=== PATIENT | male | born 1945 | race Caucasian/White ===

== ENCOUNTER → 2017-02-15 | Outpatient (CLI) | payer OTHER ==
--- NOTE | 2017-02-15 08:55 | DIAGNOSTIC IMAGING REPORT ---
ABDOMEN COMPLETE (US) CLINICAL HISTORY: R14.0 Abdominal [id number] COMPARISON STUDY: No previous studies for comparison. FINDINGS: The head and body of pancreas appear normal. The tail is obscured by overlying bowel gas shadowing. There is no evidence of abdominal aortic dilatation. The right kidney measures 12.3 cm in length. The left kidney measures 12.1 cm in length. No renal masses are visualized. There is no hydronephrosis. The spleen measures 10 cm in length. No splenic masses are visualized. There is a 5 mm echogenic nonmobile focus within the gallbladder, consistent with a polyp. There is no gallbladder wall thickening. There is no pericholecystic fluid. The liver is of slightly increased echogenicity. This a nonspecific finding most often seen in hepatic steatosis. There is a 6.1 x 1.7 x 5.1 cm hypoechoic lesion in the region the wilver hepatis. While nonspecific, this may represent focal fatty sparing. If further evaluation is desired, a dedicated MRI the liver would be considered the test of choice. There is no ductal dilatation. The common buttock measures 6 mm. IMPRESSION: 1. Suspected hepatic steatosis 2. Indeterminant 51 x 17 x 61 mm lesion with thin the right lobe of the liver in the wilver hepatis region. This may represent focal fatty sparing. 3. No ductal dilatation. 4. 5 mm gallbladder polyp Electronically signed by: Armani Peters M.D. 02/15/2017 8:54 AM Dictated Date/Time: 02/15/2017 8:50 AM
== END | disposition home or self-care (01) ==
LOC: C.ULTR 07:37
PROVIDERS: ATTEND Physician Assistant Medical
DX: R14.0 Abdominal distension (gaseous) (principal); K76.9 Liver disease, unspecified; K82.4 Cholesterolosis of gallbladder

== ENCOUNTER → 2017-02-20 | Outpatient (CLI) | payer OTHER ==
[2017-02-20 12:45] LABS: BLOOD UREA NITROGEN 13 mg/dl (7-18); CREATININE 0.71 mg/dl (0.60-1.40)
== END | disposition home or self-care (01) ==
LOC: C.LABBFT 08:22
PROVIDERS: ATTEND Physician Assistant Medical
DX: R93.8 Abnormal findings on diagnostic imaging of other specified body structures (principal)

== ENCOUNTER → 2017-02-21 | Outpatient (CLI) | payer OTHER ==
--- NOTE | 2017-02-21 17:53 | DIAGNOSTIC IMAGING REPORT ---
MRI OF THE ABDOMEN COMBO CLINICAL HISTORY: Follow-up suspected liver lesions and by ultrasound. COMPARISON STUDY: Abdominal ultrasound dated 02/15/2017. TECHNIQUE: MRI of the abdomen is performed transverse T1 and T2-weighted sequences in the axial and coronal planes. Contrast enhanced sequences were acquired following the IV administration of 10 cc of Eovist. Subtraction imaging was utilized. FINDINGS: Lower chest: No pleural effusion is identified. The heart is normal in size. A 5 mm pulmonary nodule seen at the left lung base. Liver: The liver is top normal in size measuring over 17 cm in length. The liver demonstrates diffuse drop in signal on the opposed phase images consistent with hepatic steatosis. There is an approximately 6 x 2.5 cm lobulated region of geographic sparing within the posterior left lobe adjacent to the wilver hepatis. This corresponds and around the cement ultrasound. Mild fatty sparing is also seen surrounding the gallbladder fossa. No enhancing hepatic lesion is identified. No intrahepatic biliary ductal dilatation is seen. The hepatic veins and portal veins are patent. Gallbladder: Unremarkable. Spleen: Normal in size and signal intensity. Pancreas: Unremarkable. Adrenal glands: Unremarkable. Kidneys: The kidneys are normal in size and without hydronephrosis. The kidneys enhance and excrete symmetrically. Abdominal aorta: The abdominal aorta is normal in course and caliber noting atherosclerotic irregularity. Bowel: Visualized portions of the small bowel and colon show no evidence of obstruction. A normal appendix is identified. Peritoneum: There is no abdominal ascites. There is a small fat-containing umbilical hernia. Lymphadenopathy: None. Skeletal structures: Visualized skeletal structures times are normal marrow signal intensity. IMPRESSION: 1. Findings are consistent with hepatic steatosis. 2. There is a lobulated/geographic region fatty sparing seen in the left hepatic lobe. This corresponds to the abnormality seen by ultrasound. Fatty sparing is also seen around the gallbladder fossa. 3. No hepatic lesion is identified. 4. There is a 5 mm pulmonary nodule seen at the left lung base. This is not well assessed by MRI and correlation with a dedicated chest CT is recommended for further assessment. Electronically signed by: Tima Boggs M.D. 02/21/2017 5:51 PM Dictated Date/Time: 02/21/2017 5:38 PM
== END | disposition home or self-care (01) ==
LOC: C.MRI 15:36
PROVIDERS: ATTEND Physician Assistant Medical
DX: K76.9 Liver disease, unspecified (principal); K76.0 Fatty (change of) liver, not elsewhere classified; R91.1 Solitary pulmonary nodule

== ENCOUNTER → 2017-03-07 | Outpatient (CLI) | payer OTHER ==
[2017-03-07 17:08] LABS: CHOLESTEROL/HDL RATIO 4.1
== END | disposition home or self-care (01) ==
LOC: C.LABBFT 13:40
PROVIDERS: ATTEND Internal Medicine
DX: E78.5 Hyperlipidemia, unspecified (principal); K76.9 Liver disease, unspecified; R93.8 Abnormal findings on diagnostic imaging of other specified body structures

== ENCOUNTER → 2017-03-09 | Outpatient (CLI) | payer OTHER ==
[~2017-03-09] MED LIST: OPTIRAY 320 IV PRN
--- NOTE | 2017-03-09 14:04 | DIAGNOSTIC IMAGING REPORT ---
CHEST CT WITH CONTRAST CT DOSE: 265.40 mGy.cm HISTORY: Pulmonary nodule follow-up. No acute chest complaints. Pulmonary nodules incidentally noted on recent liver MRI. R91.1 Pulmonary [id number] 02/20/17 CREATININE 0.71 TECHNIQUE: Multiaxial CT images of the chest were performed following the intravenous administration of contrast. A dose lowering technique was utilized adhering to the principles of ALARA. COMPARISON: Liver MRI 02/21/2017. FINDINGS: No dominant thyroid nodule. Mildly prominent 8 mm subcarinal lymph node is nonspecific and may be reactive. Heart is normal in size with coronary arterial calcifications. There is moderate atherosclerosis of the thoracic aorta and proximal great vessels. The pulmonary arterial tree is not well opacified, however appears unremarkable. There is no pneumothorax or pleural effusion. Multiple focal patchy groundglass opacities with subpleural reticular and tree-in-bud opacities are present within the bilateral lower lobes and also within the inferior portions of the lingula and right middle lobe. 6 mm noncalcified pulmonary nodule of the lateral basal segment left lower lobe correlates with the finding seen on comparison MRI. 5 mm noncalcified pulmonary nodule seen within the right lower lobe on image 213 of the axial series. 5 mm noncalcified pulmonary nodule seen within the left lower lobe on image 240. Central airways are patent with minimal layering mucosal secretions. Fatty infiltration of the liver is noted with areas of fatty sparing near the wilver hepatis. Soft tissues are within normal limits. Bones are intact. Multilevel endplate spurring and facet arthropathy is noted. IMPRESSION: 1. Noncalcified pulmonary nodules of the bilateral lung bases are seen, largest on the left measuring 6 mm within the lateral basal segment left lower lobe. Follow-up according to the guidelines below recommended. 2. Bibasilar groundglass densities with multifocal subpleural reticular and tree-in-bud opacities suggest infectious or inflammatory bronchiolitis without lobar airspace consolidation. 3. Fatty infiltration of the liver with fatty sparing near the wilver hepatis. Please refer to below summary of Fleischner criteria recommendations for follow-up of incidental CT nodules (Manuel Carreno, Guidelines for management of small pulmonary nodules detected on CT scans: A statement from the Fleischner Society, Radiology 237: [phone].) SOLID NODULES Solitary nodule size: <6 mm * Low risk patients: no follow-up needed * high risk patients: optional CT at 12 months Solitary nodule size: 6-8 mm * Low risk patients: follow-up at 6-12 months, then consider further follow-up at 18-24 months * high risk patients: initial follow-up CT at 6-12 months and then at 18-24 months if no change Solitary nodule size: >8 mm * either low or high risk patients - consider follow-up CT at 3 months, and/or CT-PET, and/or biopsy Multiple nodules size: <6 mm * Low risk patients: no routine follow-up * high risk patients: optional CT at 12 months Multiple nodules size: 6-8 mm * Low risk patients: follow-up at 3-6 months, then consider further follow-up at 18-24 months * high risk patients: follow-up at 3-6 months, then at 18-24 months if no change Multiple nodules size: >8 mm * Low risk patients: follow-up at 3-6 months, then consider further follow-up at 18-24 months * high risk patients: follow-up at 3-6 months, then at 18-24 months if no change Note: newly detected indeterminate nodule in persons 35 years of age or older. * Low risk patients: minimal or absent history of smoking and/or other known risk factors * high risk patients: history of smoking or of other known risk factors (e.g. first degree relative with lung cancer, or exposure to asbestos, radon, uranium) * if a nodule up to 8 mm is partly solid or is ground glass further follow-up is required after 24 months to exclude possible slow growing adenocarcinoma (HERNAN) SUBSOLID NODULES Solitary pure ground-glass nodule * nodule size <6 mm - no CT follow-up required * nodule size >=6 mm - follow-up CT at 6-12 months, then every 2 years until 5 years Solitary part-solid nodule * nodule size <6 mm - no CT follow-up required * nodule size >=6 mm - follow-up CT at 3-6 months. If unchanged, and solid component remains <6 mm, then annual follow-up for 5 years Multiple subsolid nodules * nodule size <6 mm - follow-up CT at 3-6 months, consider further follow-up at 2 and 4 years if stable * nodule size >=6 mm - follow-up CT at 3-6 months, subsequent management based on the most suspicious nodule(s) The above report was generated using voice recognition software. It may contain grammatical, syntax or spelling errors. Electronically signed by: Nicolas Broderick M.D. 03/09/2017 2:03 PM Dictated Date/Time: 03/09/2017 1:52 PM
== END | disposition home or self-care (01) ==
LOC: C.CTS 13:14
PROVIDERS: ATTEND Physician Assistant Medical
DX: R91.1 Solitary pulmonary nodule (principal); K76.0 Fatty (change of) liver, not elsewhere classified

== ENCOUNTER → 2017-09-03 | Outpatient (CLI) | payer OTHER ==
[~2017-09-03] MED LIST changes: +COEN30CA8; +MISCCAP80; +MULT-506 PO; -OPTIRAY 320 IV PRN
--- NOTE | 2017-09-03 11:33 | DIAGNOSTIC IMAGING REPORT ---
(CHEST) THORAX WITHOUT CLINICAL HISTORY: 72 years-old Male presenting with R91.8 Multiple lung nodules on CTto be done in 6 months E X0D E . TECHNIQUE: Multidetector CT imaging of the chest was performed without the use of intravenous contrast. IV contrast: None. A dose lowering technique was used consistent with the principles of ALARA (as low as reasonably achievable). COMPARISON: 03/09/2017. CT DOSE (mGy.cm): The estimated cumulative dose is 368.90 mGycm. 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 On soft tissue windows, mild body wall edema. Normal thyroid. No axillary, supraclavicular, or mediastinal lymphadenopathy. Evaluation of the xin limited without intravenous contrast. Atherosclerosis of the aorta. Normal heart size. Coronary artery calcification. No pericardial or pleural effusion. Upper abdomen normal. On lung windows, persistent peripheral groundglass and reticulonodular opacities, which have a basilar predominance. These affect both dependent and nondependent regions of the lung bases. Previous seen noted solid 6 mm subpleural pulmonary nodule in the lateral basal left lower lobe is unchanged in size (series 4 image 236). The solid peripheral 4-5 mm nodule in the lateral basal right lower lobe is also unchanged (series 4 image 217). No new nodule. No central bronchial wall thickening or bronchiectasis. Central airways patent. On bone windows, degenerative changes of the spine. Multiple old right rib fractures. IMPRESSION: 1. No significant change in the basilar predominant peripheral groundglass and reticulonodular opacities most consistent with a chronic inflammatory inflammatory or fibrotic process. Correlate with a history of connective tissue disease or prior infection. 2. Stable solid pulmonary nodules at the lung bases measuring up to 6 mm. Follow-up per [employer] 2017 recommendations below. Please refer to below summary of Fleischner Society 2017 recommendations for follow-up of incidental CT nodules (H Ev et al. Guidelines for management of incidental pulmonary nodules detected on CT images: From the Fleischner Society 2017. Radiology 2017; 284: 228-243.) SOLID NODULES Single nodule; size < 6 mm * Low risk patients: No routine follow-up * High risk patients: Optional CT at 12 months Single nodule; size 6-8 mm * Low risk patients: CT at 6-12 months, then consider CT at 18-24 months * High risk patients: CT at 6-12 months, then at 18-24 months Single nodule; size > 8 mm * Either low or high risk patients: Considered CT at 3 months, PET/CT, or tissue sampling Multiple nodules; size < 6 mm * Low risk patients: No routine follow up * High risk patients: Optional CT at 12 months Multiple nodules; size 6-8 mm * Low risk patients: CT at 3-6 months, then consider CT at 18-24 months * High risk patients: CT at 3-6 months, then at 18-24 months Multiple nodules; size > 8 mm * Low risk patients: CT at 3-6 months, then consider at 18-24 months * High risk patients: CT at 3-6 months, then at 18-24 months SUBSOLID NODULES Single ground-glass nodule * Nodule size < 6 mm: No routine follow-up * Nodule size > or = 6 mm: CT at 6-12 months to confirm persistence, then CT every 2 years until 5 years Single part-solid nodule * Nodule size < 6 mm: No routine follow-up * Nodules size > or = 6 mm: CT at 3-6 months to confirm persistence. If unchanged and solid component remains < 6 mm, annual CT should be performed for 5 years Multiple nodules * Nodule size < 6 mm: CT at 3-6 months. If stable, consider CT at 2 and 4 years. * Nodules size > or = 6 mm: CT at 3-6 months. Subsequent management based on the most suspicious nodule(s) NOTE: These guidelines apply to incidental nodules. These guidelines do not apply to patients younger than 35 years, immunocompromised patients, or patients with cancer. * Low risk patients: Minimal or absent history of smoking and/or other known risk factors * High risk patients: History of smoking, exposure to other carcinogens, emphysema, fibrosis, upper lobe location, family history of lung cancer, etc. If a nodule up to 8 mm is partly solid or is ground glass, further follow-up is required after 24 months to exclude possible slow growing adenocarcinoma. Electronically signed by: Rolo Tinsley M.D. 09/03/2017 11:31 AM Dictated Date/Time: 09/03/2017 11:24 AM
== END | disposition home or self-care (01) ==
LOC: C.CTS 10:57
PROVIDERS: ATTEND Internal Medicine Pulmonary Disease
DX: R91.8 Other nonspecific abnormal finding of lung field (principal)

== ENCOUNTER 2017-09-12 05:15 | Inpatient (IN) | payer OTHER ==
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
[~2017-09-12 05:15] MED LIST changes: -COEN30CA8; -MISCCAP80; -MULT-506 PO; +RAPID SEQUENCE INDUCTION BAG ONE; +SODIUM CHLORIDE 0.9% 1000ML 1,000 ML IV STA
[2017-09-12] MEDS ORDERED: MULT-506 PO (05:22)
[2017-09-12] MEDS ORDERED: FENTANYL CITRATE INJ 50 MCG/1 ML 2 ML VIAL ONE ×2 (05:24→05:47)
[2017-09-12 05:36] LABS: ISTAT CREATININE 1.1 mg/dl (0.6-1.3); ISTAT IONIZED CALCIUM 0.99 mmol/l (1.12-1.32); ISTAT POTASSIUM 4.1 mEq/L (3.3-5.0)
[2017-09-12] MEDS ORDERED: OPTIRAY 320 IV PRN (05:45)
[2017-09-12] MEDS ORDERED: MIDAZOLAM HCL 1 MG/ML 2ML VIAL ONE (05:47)
[2017-09-12] MEDS ORDERED: HEPARIN SOD (PORCINE) 1000 UNIT/ML 10 ML VIAL ONE (05:47)
[2017-09-12] MEDS ORDERED: NITROGLYCERIN/D5W 100MCG/ML 20ML SYR ONE (05:48)
[2017-09-12] MEDS ORDERED: NiCARDipine HCL INJ 2.5 MG/ML 10 ML AMP ONE (05:48)
[2017-09-12 05:55] VITALS: O2SAT 85
[2017-09-12] MEDS ORDERED: DOPamine 400MG / 250ML D5W ONE (06:16)
[2017-09-12] MEDS ORDERED: SODIUM BICARB 8.4% INJ 50 MEQ/50 ML SYR IV ONE ×3 (06:24→12:49)
[2017-09-12] MEDS ORDERED: NOREPINEPHRINE BIT INJ 8 MG in DEXTROSE 5% 500ML 500 ML IV PRN (06:30)
[2017-09-12] MEDS ORDERED: NOREPINEPHRINE BITARTRATE 1 MG/ML 4 ML VIAL IV ONE ×2 (06:50→08:01)
[2017-09-12] MEDS ORDERED: NURSING VERBAL MED ORDER ONE (07:00)
[2017-09-12] MEDS ORDERED: COEN30CA8 (07:08)
[2017-09-12] MEDS ORDERED: MISCCAP80 (07:08)
--- NOTE | 2017-09-12 07:40 | DIAGNOSTIC IMAGING REPORT ---
ANGIO ABD/PELVIS WITH CONTRAST CLINICAL HISTORY: 72 years-old Male with PAIN ALL DOWN ABD acute generalized abdominal pain with hypotension and bradycardia. Technologist reports that the patient was immediately taken to the Supervisor [employer] [facility] following the study. COMPARISON STUDY: CTA chest of same day TECHNIQUE: Following the IV administration of 91 cc of Optiray 320, CT angiogram of the abdomen and pelvis was performed from the lung bases to the proximal femora both with and without the use of IV contrast. Images are reviewed in the axial, sagittal, and coronal planes. 3-D MIPS images are created and assessed. IV contrast was administered without complication. A dose lowering technique was utilized adhering to the principles of ALARA. FINDINGS: Motion degraded exam. CTA ABDOMEN AND PELVIS: Study is also limited secondary to contrast bolus timing. Extensive mixed plaquing of the abdominal aorta. Mixed plaquing of the origin of the celiac trunk results in approximately 60% luminal narrowing. Mixed plaquing at the origin of the superior mesenteric artery results in approximately 50% stenosis with moderate atheromatous plaquing is seen throughout the proximal SMA which appears to cause approximately 70% stenosis. The inferior mesenteric artery is diminutive in size without high-grade stenosis identified. Mixed plaquing at the origin of the bilateral renal arteries is noted without significant narrowing on the right. There is less than 50% stenosis on the left. The bilateral common and external iliac arteries are patent. Moderate to extensive mixed plaquing of the bilateral common femoral arteries without high-grade narrowing identified. There is no abdominal aortic aneurysm or dissection identified. CT ABDOMEN/PELVIS: Findings within the lung bases discussed on CTA chest of same day. Motion degraded exam. There is fatty infiltration of the liver. Spleen is mildly diminutive in size. Pancreas, gallbladder and adrenal glands are within normal limits. Kidneys, ureters and urinary bladder are within normal limits. There is reflux of contrast into the IVC, hepatic veins and right renal vein. Prostate is enlarged causing mass effect upon the base of the urinary bladder. No bulky adenopathy. No bowel structure or focal bowel wall thickening identified. Moderate colonic diverticulosis without CT evidence of acute diverticulitis. Fluid-filled loops of nondilated bowel of the lower abdomen are likely physiologic. The appendix appears normal. Soft tissues are unremarkable. The bones appear intact. IMPRESSION: 1. Limited study as above. 2. Extensive mixed atheromatous and atherosclerotic plaquing of the abdominal aorta without abdominal aortic aneurysm or dissection. Mixed plaquing at the origin of the superior mesenteric artery results in approximately 50% stenosis with prominent atheromatous plaque through the proximal several centimeters of the SMA causing approximately 70% narrowing. 3. 60% luminal stenosis involves the proximal celiac trunk. 4. Fatty infiltration of the liver. 5. No bowel obstruction or focal bowel wall thickening. 6. Colonic diverticulosis without diverticulitis. 7. Prostamegaly. The above report was generated using voice recognition software. It may contain grammatical, syntax or spelling errors. Electronically signed by: Nicolas Broderick M.D. 09/12/2017 7:39 AM Dictated Date/Time: 09/12/2017 7:21 AM
[2017-09-12] MEDS ORDERED: DOPAMINE 400MG / D5W IV PRN (07:45)
[2017-09-12] MEDS ORDERED: EPINEPHRINE HCL 4 MG in DEXTROSE 5% 250ML IV PRN (07:45)
[2017-09-12] MEDS ORDERED: VASOPRESSIN INJ 50 UNITS in SODIUM CHLORIDE 0.9% 500ML 500 ML IV SCH (07:45)
--- NOTE | 2017-09-12 07:48 | DIAGNOSTIC IMAGING REPORT ---
CHEST CTA for AORTIC DISSECTION CT DOSE: 1458.83 mGy.cm HISTORY: Severe atypical chest pain. Bradycardia. TECHNIQUE: Multiaxial CT images of the chest were performed both before and after the intravenous administration of contrast to evaluate the aorta. Maximal intensity projection images were also obtained. A dose lowering technique was utilized adhering to the principles of ALARA. COMPARISON STUDY: Chest CT 09/03/2017. FINDINGS: Noncontrast imaging through the chest shows no evidence for an intramural hematoma within the thoracic aorta. The thoracic aorta is normal in course and caliber with no evidence for dissection. The heart is normal in size. The main pulmonary arteries are patent. Significant retrograde opacification of the IVC, hepatic veins, and right renal vein consistent with significant cardiac dysfunction/heart failure. No significant mediastinal or hilar lymphadenopathy. No fractures within the visualized osseous structures. The central airways are patent. No pneumothorax. Interval development of interlobular septal thickening with groundglass densities at the bases of the bilateral lower lobes. Multiple scattered nodular densities, right greater than left also progressed. These findings favor pulmonary edema. No pleural effusions. IMPRESSION: 1. No evidence for an aortic dissection. 2. Significant cardiac dysfunction/heart failure. There is also interval development of interlobular septal thickening and scattered subcentimeter nodular densities as well as groundglass densities at the lung bases. This is consistent with pulmonary edema. An atypical infectious process could also have a similar appearance but is considered less likely. Electronically signed by: Lizandro Abdalla M.D. 09/12/2017 7:47 AM Dictated Date/Time: 09/12/2017 7:07 AM
[2017-09-12] MEDS ORDERED: HEPARIN 25000 UNIT/500 ML D5W ONE (08:06)
[2017-09-12] MEDS ORDERED: PHENYLEPHRINE HCL INJ 10 MG/ML VIAL ONE ×2 (09:02→09:06)
--- NOTE | 2017-09-12 09:48 | Cardiac Catheterization ---
Procedure Note Procedure Date Sep 12, 2017. Pre-Procedure Diagnosis STEMI AUC Score 9 Post-Procedure Diagnosis Severe CAD, Successful PCI, Decreased LV Systolic Function Procedure(s) Performed Coronary Angiography, Left Heart Cath, Bare Metal Stent, Temporary Pacemaker, IABP Qa Test [facility] Otol[facility]ology Physician(s) Mateo Estimated Blood Loss 25 Medication(s) Aspirin, Atropine, Fentanyl, Heparin, Integrilin, Nicardipine, Norepinephrine, Versed epinephrine Summary of Findings Indication: STEMI/Heart Alert 72 year old man with history of dyslipidemia, tobacco abuse, pulmonary nodules who presented to ED with 2 hrs of chest pain and anterior ST elevations on presenting ECG. Patient hypotensive en route to 60s. Initially take for CTA to rule out dissection. Later in ED developed PEA arrest requiring chest compressions and Epi x2 before ROSC. Access: 6Fr right [employer]; 8Fr left [employer]; 7Fr right CFV Catheters: EBU3.5 guide; JR4 guide Findings: LM - Acute 100% occlusion of distal LM RCA - Dominant, Mild to moderate diffuse proximal to mid disease; 99% late mid disease -- PCI -- Antithrombotic therapy: Heparin, Integrilin Procedure: On arrival patient on norepinephrine with SBP to 60-70s. IABP placed via left [employer] LM cannulated with EBU 3.5 guide BMW wire passed across left main occlusion into distal LAD LM ballooned with 2.5 compliant balloon with initial return of flow in LAD/ circumflex - Found to have 95% stenosis in ostial circumflex Re-occlusion of distal LM after initial balloon inflation Left main re-ballooned and eventually able to pass a whisper wire into distal circumflex Ostial circumflex ballooned with 2.5 balloon with limited post angioplasty flow in circumflex Continued to require escalating pressors -- eventually placed on max norepinephrine, dopamine, vasopressin, epinephrine 3.0 x 26 Integrity BMS placed from LM into circumflex LAD re-wired and stent struts dilated with 2.5 balloon. 3.0 x 15 Integrity BMS placed from LM to LAD (Taqueriaottmichael). Post procedure noted to have diffuse moderate LAD disease and moderate disease distal to circumflex stent with JEREMY 3 flow in both vessels Angiography of RCA revealed 99% stenosis in late-mid RCA RCA cannulated with JR4 guide [employer] 50 wire passed into distal vessel Mid RCA dilated with 2.5 compliant balloon Post angioplasty JEREMY 3 flow in RCA Attempts made to transfer patient to a tertiary center. Case discussed with SHANTHI Vasquez Debby, [facility] Chu. Eventually a bed found at [facility] and [facility] available to fly patient. Temporary venous pacemaker placed via right CFV MAPs initially stable in low 60s on maximum pressor support, IABP and temporary wire but gradually began trend down prior to arrival of [facility]. Despite addition of phenylephrine unable to maintain MAPS above 40 and patient thought too unstable for transfer. CPR thought futile with no additional options for hemodynamic support and patient transferred to ICU for comfort care. Hemodynamics Rest Ao: -- Final Ao: -- LV: -- Recommendations PCI without planned CABG Specimens None Radiation Exposure (mGy) -- Contrast (mls) -- ACC Data Cardiac Status Clinical evaluation leading to the procedure CAD Presntation: STEMI Anginal Classification: CCS IV Heart Failure: No, NYHA Class: CCS I
--- NOTE | 2017-09-12 10:30 | Critical Care Consultation ---
Critical Care Consultation Date of Consultation: Sep 12, 2017. Attending Physician: Reason for Consultation: terminal care History of Present Illness He presented with an acute STEMI. Developed full arrest requiring CPR. dye lab technician finding diffuse disease and profound LV dysfunction. Stents placed and IABP utilized. Profound cardiogenic stock persisted. Clinically unable to tolerate trip to center with LVAD capability. Refractory shock and ultimate progression total cardiovascular collapse continued. He is moved to the ICU for terminal care. Past Medical/Surgical History --see admit note Family History unhelpful Social History Smoking Status: Unknown if Ever Smoked Smokeless Tobacco Use: Unknown Drug Use: none Marital Status: Housing Status: lives with family Occupation Status: retired Allergies Coded Allergies: No Known Allergies (Unverified , 09/12/17) Home Medications Scheduled Multivitamin (Multivitamin), 1 TAB PO DAILY Miscellaneous Medications Coenzyme Q10 (Ubidecarenone) (Coq-10) Probiotic Product (Probiotic) Current Inpatient Medications Current Inpatient Medications Medications (Trade) Dose Ordered Sig/Kary Route Start Time Stop Time Status Last Admin Dose Admin Sodium Chloride 1,000 ml @ 125 mls/hr Q8H STAT IV 09/12/17 05:07 09/12/17 13:06 Ioversol (Optiray 320) 100 ml UD PRN IV 09/12/17 05:45 09/16/17 05:44 Norepinephrine Bitartrate 8 mg/ Dextrose 508 ml @ 0 mls/hr Q0M PRN IV 09/12/17 06:30 10/12/17 06:29 Epinephrine HCl 4 mg/Dextrose 254 ml @ 0 mls/hr Q0M PRN IV 09/12/17 07:45 10/12/17 07:44 Vasopressin 50 units/Sodium Chloride 502.5 ml @ 24 mls/hr [id number] IV 09/12/17 07:45 10/12/17 07:44 Dopamine HCl/ Dextrose 250 ml @ 0 mls/hr Q0M PRN IV 09/12/17 07:45 10/12/17 07:44 Review of Systems not obtainable Physical Exam Date Time Temp Pulse Resp B/P (MAP) Pulse Ox O2 Delivery O2 Flow Rate FiO2 09/12/17 08:48 100 09/12/17 08:30 100 09/12/17 07:06 90 09/12/17 06:00 100 09/12/17 05:55 128 19 112/67 85 09/12/17 05:53 128 19 09/12/17 05:52 128 17 112/67 09/12/17 05:51 127 20 09/12/17 05:50 127 09/12/17 05:50 108 14 09/12/17 05:49 70 90/49 09/12/17 05:49 102 09/12/17 05:49 67 09/12/17 05:48 37 37 09/12/17 05:47 79 09/12/17 05:46 174 27 09/12/17 05:45 125 16 85 09/12/17 05:44 110 16 82/27 09/12/17 05:43 88 09/12/17 05:43 65 21 09/12/17 05:42 39 22 09/12/17 05:42 51 09/12/17 05:41 43 28 09/12/17 05:40 49 09/12/17 05:39 121 48 166/ 09/12/17 05:39 34 09/12/17 05:38 157 25 09/12/17 05:[address]--vented HEENT--negative Respiratory--vented Cardio--perfusion is terminal--heart tones distant GI--negative Musculo--negative Neuro--no focal Laboratory Results Last 24 Hours Test 09/12/17 05:07 09/12/17 05:22 09/12/17 06:22 09/12/17 06:36 Creatine Kinase MB Ratio Bedside Hemoglobin 15.0 g/dl Bedside Hematocrit 44 % Bedside Sodium 141 mEq/L Bedside Potassium 4.1 mEq/L Bedside Chloride 106 mEq/L Bedside Total CO2 17 mEq/l Anion Gap 22.0 mmol/L Bedside Blood Urea Nitrogen 14 mg/dl Bedside Creatinine 1.1 mg/dl Bedside Glucose (other) 144 mg/dl Bedside Ionized Calcium (Delia) 0.99 mmol/l Bedside Blood Gas pH (LAB) 7.13 Bedside Blood Gas pCO2 (LAB) 41 mmHg Bedside Blood Gas pO2 (LAB) 242 mmHg Bedside Blood Gas HCO3 (LAB) 13 meq/L Bedside Blood Gas Total CO2 15 mEq/l Bedside Blood Gas Base Excess (LAB) -16.0 meq/L Bedside Blood Gas O2 Saturation 100.0 % Kaolin Activated Coagulation Time 268 SECONDS Test 3/14/18 06:37 09/12/17 06:58 09/12/17 07:40 09/12/17 07:41 Bedside Blood Gas pH (LAB) 7.18 7.24 7.10 Bedside Blood Gas pCO2 (LAB) 53 mmHg 58 mmHg 21 mmHg Bedside Blood Gas pO2 (LAB) 239 mmHg 102 mmHg 103 mmHg Bedside Blood Gas HCO3 (LAB) 20 meq/L 25 meq/L 6 meq/L Bedside Blood Gas Total CO2 21 mEq/l 26 mEq/l 7 mEq/l Bedside Blood Gas Base Excess (LAB) -9.0 meq/L -3.0 meq/L -23.0 meq/L Bedside Blood Gas O2 Saturation 100.0 % 96.0 % 95.0 % Kaolin Activated Coagulation Time 219 SECONDS 0 SECONDS Test 09/12/17 08:23 09/12/17 09:06 Bedside Blood Gas pH (LAB) 7.19 7.21 Bedside Blood Gas pCO2 (LAB) 51 mmHg 46 mmHg Bedside Blood Gas pO2 (LAB) 80 mmHg 94 mmHg Bedside Blood Gas HCO3 (LAB) 20 meq/L 19 meq/L Bedside Blood Gas Total CO2 21 mEq/l 20 mEq/l Bedside Blood Gas Base Excess (LAB) -9.0 meq/L -9.0 meq/L Bedside Blood Gas O2 Saturation 92.0 % 95.0 % Assessment & Plan Cardiogenic Stroke--Fatal Event -family to bedside -comfort care
--- NOTE | 2017-09-12 12:16 | HISTORY & PHYSICAL EXAMINATION ---
DATE OF ADMISSION: 09/12/2017 CHIEF COMPLAINT: Chest pain. HISTORY OF PRESENT ILLNESS: Mr. Hodges is a 72-year-old man with a history of dyslipidemia, ongoing tobacco abuse, pulmonary nodules, who presented to the Emergency Department after developing chest pain 2 hours prior to presentation. The patient was brought by EMS and found to have anterior ST elevations with hypotension en route and Heart alert was activated Prior to all this, patient had been having exertional abdominal pain for weeks to months, previously evaluated by GI and had been previously seen by Dr. Mcneill last week with plan for upcoming stress test. Upon arrival to the ED, the patient was sent for a CTA which was negative for dissection. He became increasingly hypotensive and eventually went into PEA arrest, received 2 rounds of epinephrine with chest compressions before return of spontaneous circulation. The patient was intubated. He was maintaining maps into the 60 to 70s and with diffuse ST elevations, decision was made to proceed with coronary angiography and potential PCI. PAST MEDICAL HISTORY: 1. Dyslipidemia. 2. Pulmonary nodules. 3. Ongoing tobacco abuse. 4. Questionable liver lesions. 5. Abdominal pain. SOCIAL HISTORY: Lives with . Long-term smoker. FAMILY HISTORY: Unable to be obtained. REVIEW OF SYSTEMS: Unable to be obtained. PHYSICAL EXAMINATION: VITAL SIGNS: At time of interview, heart rate was 110 and blood pressure was 90/49. GENERAL: The patient was intubated and nonresponsive. HEENT: Sclerae are anicteric. LUNGS: Clear. HEART: He was tachycardic but regular with distant heart sounds. ABDOMEN: Soft. EXTREMITIES: Cool. He had palpable femoral pulses and radial pulses nonpalpable. SKIN: Skin was cool to touch, but showed no rashes. LABORATORY DATA: Presenting initial sodium 141, potassium 4.1, BUN 14, creatinine of 1.1. Hemoglobin of 15. IMAGING DATA: CTA consistent with pulmonary edema, no dissection. IMPRESSION AND PLAN: The patient here with the chart. IMPRESSION AND PLAN: 1. Cardiogenic shock. 2. Anterior ST elevation myocardial infarction. 3. History of tobacco abuse. 4. Dyslipidemia. Patient here after acute onset of chest pain with EKG consistent with anterior ST elevation MO. At present, the patient is in cardiogenic shock, having suffered an arrest x2 in the Emergency Department, requiring CPR and epinephrine. Discussed with family that prognosis was poor but would need emergent revascularization and additional hemodynamic support for any chance of survival. The patient's family is agreeable with proceeding to cardiac catheterization lab. Discussed with the Emergency Room team to start arranging a potential transport as suspect will need advanced hemodynamic support regardless of successful PCI. Further recommendations pending findings of angiography. Thank you for this consultation. LAURA
[2017-09-12] MEDS ORDERED: ETOMIDATE 2 MG/ML 20 ML VIAL IV ONE (12:49)
[2017-09-12] MEDS ORDERED: SUCCINYLCHOLINE CHLORIDE 20 MG/ML 10 ML VIAL IV ONE (12:49)
[2017-09-12] MEDS ORDERED: CALCIUM CHLORIDE 10% 10 ML SYR IV ONE (12:49)
[2017-09-12] MEDS ORDERED: ATROPINE SULFATE 0.1 MG/ML 10 ML SYR IV ONE (12:49)
[2017-09-12] MEDS ORDERED: SODIUM CHLORIDE 0.9% 10ML FLUSH IV ONE (12:49)
--- NOTE | 2017-09-12 14:25 | ECHOCARDIOGRAM REPORT ---
*NOTICE TO RECEIVING DEMOCRAT AGENCY This information is strictly Confidential and protected under [place] law. [place] law prohibits you from making any further disclosure of this information unless further disclosure is expressly permitted by the written consent of the person to whom it pertains or is authorized by law. A general authorization for the release of medical or other information is not sufficient for this purpose. Hospital accepts no responsibility if the information is made available to any other person, INCLUDING THE PATIENT. Interpretation Summary * Conclusions -- * LIMITED STUDY FOR EFFUSION * Left ventricular systolic function is severely reduced. * There are regional wall motion abnormalities as specified. * There is no pericardial effusion. Procedure Details * LIMITED STUDY FOR EFFUSION Left Ventricle * The left ventricle is grossly normal size. * Left ventricular systolic function is severely reduced. * Ejection Fraction = 20-25%. * The anterior and lateral deshpande are akinetic. There is akinesis of the apex. * There are regional wall motion abnormalities as specified. Pericardium/Pleural * There is no pericardial effusion.
--- NOTE | 2017-10-08 23:09 | Death Summary ---
Summary of Admission Date Sep 12, 2017 at 07:10 Date & Time of September 12, 2017 10:00 Cause of STEMI, Cardiogenic shock Hospital Course 72 year old man with history of dyslipidemia, tobacco abuse, pulmonary nodules who presented to ED with 2 hrs of chest pain and anterior ST elevations on presenting ECG. Patient hypotensive to 60s in transport to ED. Initially take for CTA to rule out dissection. Later in ED developed PEA arrest requiring chest compressions and Epi x2 before ROSC. In civil laboratory technician: On arrival patient on norepinephrine with SBP to 60-70s. IABP placed via left CAR JOCKEY Cardiac cath revealed an acute 100% occlusion of his distal left main and later a 99% mid RCA stenosis. PCI undertaken of LM with eventual placement of 2 BMS (one to LM into circumflex , one from LM into LAD). Continued to require escalating pressors -- eventually placed on max norepinephrine, dopamine, vasopressin, epinephrine Post procedure noted to have diffuse moderate LAD disease and moderate disease distal to circumflex stent with JEREMY 3 flow in both vessels Balloon angioplasty performed to mid RCA with JEREMY 3 flow post PTCA. Attempts made to transfer patient to a tertiary center. [facility] and [facility] available to fly patient. Temporary venous pacemaker placed via right CFV MAPs initially stable in low 60s on maximum pressor support, IABP and temporary wire but gradually began trend down prior to arrival of [facility]. Despite addition of phenylephrine unable to maintain MAPS above 40 and patient thought too unstable for transfer. CPR thought futile with no additional options for hemodynamic support and patient transferred to ICU for comfort care Patient in ICU at 10:00 AM on 09/12 with family at bedside.
== END 2017-09-12 12:50 | disposition expired | DRG 229 ==
LOC: C.EDB 05:15 → C.MSICU 07:10
PROVIDERS: ADMIT Internal Medicine Interventional Cardiology; ATTEND Internal Medicine Interventional Cardiology
PROC: 5A1935Z Respiratory Ventilation, Less than 24 Consecutive Hours (ICD-10-PCS; 2017-09-12)
PROC: 0BH17EZ Insertion of Endotracheal Airway into Trachea, Via Natural or Artificial Opening (ICD-10-PCS; 2017-09-12)
PROC: 4A023N7 Measurement of Cardiac Sampling and Pressure, Left Heart, Percutaneous Approach (ICD-10-PCS; principal; 2017-09-12 06:48)
PROC: 02HK3NZ Insertion of Intracardiac Pacemaker into Right Ventricle, Percutaneous Approach (ICD-10-PCS; principal; 2017-09-12 06:48)
PROC: B211YZZ Fluoroscopy of Multiple Coronary Arteries using Other Contrast (ICD-10-PCS; principal; 2017-09-12 06:48)
PROC: 027035Z Dilation of Coronary Artery, One Artery with Two Drug-eluting Intraluminal Devices, Percutaneous Approach (ICD-10-PCS; principal; 2017-09-12 06:48)
DX: I21.01 ST elevation (STEMI) myocardial infarction involving left main coronary artery (principal); R57.0 Cardiogenic shock; F17.200 Nicotine dependence, unspecified, uncomplicated; I25.10 Atherosclerotic heart disease of native coronary artery without angina pectoris; Z51.5 Encounter for palliative care